=== PATIENT | male | born 1985 | race Caucasian/White ===

== ENCOUNTER 2024-03-29 17:24 | Emergency (ER) | payer OTHER ==
[2024-03-29] MEDS: Lactated Ringers 1,000 ML IV ONE ×2 (18:30)
[2024-03-29] MEDS: Fluorescein 1 MG Ophth Strip EYEBOTH ONE (18:30)
[2024-03-29] MEDS: Proparacaine 0.5% Ophth Soln 15 ML Bottle EYEBOTH ONE (18:30)
[2024-03-29] MEDS: Ciprofloxacin 0.3% Ophth Soln 5 ML Bottle EYEBOTH ONE (19:46)
== END 2024-03-29 19:46 | disposition home or self-care (01) ==
LOC: JD.ED 17:24
DX: S05.00XA Injury of conjunctiva and corneal abrasion without foreign body, unspecified eye, initial encounter (principal); X58.XXXA Exposure to other specified factors, initial encounter
CPT/HCPCS: 99283; A9270-GY; J3490; J7120